=== PATIENT | male | born 1975 | race Caucasian/White ===

== ENCOUNTER 2016-09-13 22:56 | Emergency (ER) | payer BC, OTHER ==
[~2016-09-13] VITALS: Ht 177.8 cm; Wt 101.0 kg
[2016-09-13 23:00] VITALS: Ht 177.8 cm; Wt 101.0 kg
[2016-09-14] MEDS ORDERED: ASPIRIN 325 MG TAB PO STA (00:20)
[2016-09-14 00:34] LABS: URINE BLOOD (Dip) POC Negative (NEGATIVE)
--- NOTE | 2016-09-14 00:56 | RADRPT ---
PROCEDURE: XR Chest. CLINICAL INDICATION: Chest pain. TECHNIQUE: Portable AP upright view of the chest was obtained. COMPARISON: None. FINDINGS: The cardiomediastinal silhouette is within normal limits. The lungs are clear. There is no evidenc e for pleural effusion, pneumothorax or pulmonary vascular congestion. The osseous structures are i ntact with no evidence for acute abnormality. RPTAT:HJJR IMPRESSION: No evidence for acute intrathoracic pathology. Physician Marisol Date Time Electronically viewed and signed by Physician Marisol on 09/14/2016 00:56 JR/
[2016-09-14] MEDS ORDERED: IBUP100T46 PO (01:15)
[2016-09-14] MEDS ORDERED: TAMS0.4C2 PO (01:15)
[2016-09-14 01:18] LABS: ADD SCAN DIFF NO
[2016-09-14 01:23] LABS: BASOPHIL # 0.1 10^3/ul (0.0-0.1); BASOPHILS % 0.4 % (0.0-2.0); EOSINOPHILS # 0.3 10^3/ul (0.0-0.5); EOSINOPHILS % 2.6 % (0.0-7.0); HEMATOCRIT 47.8 % (42.0-52.0); HEMOGLOBIN 16.6 g/dl (14.0-18.0); LYMPHOCYTES # 3.7 10^3/ul (0.8-2.9); LYMPHOCYTES % 31.8 % (15.0-51.0); MEAN CORPUSCULAR HEMOGLOBIN 30.3 pg (29.0-33.0); MEAN CORPUSCULAR HGB CONC 34.7 g/dl (32.0-37.0); MEAN CORPUSCULAR VOLUME 87.2 fl (82.0-101.0); MEAN PLATELET VOLUME 10.8 fl (7.4-10.4); MONOCYTE # 0.8 10^3/ul (0.3-0.9); MONOCYTES % 6.8 % (0.0-11.0); NEUTROPHIL # 6.8 10^3/ul (1.6-7.5); NEUTROPHILS % 58.1 % (39.0-77.0); PLATELET COUNT 183 10^3/UL (140-415); RED BLOOD COUNT 5.48 10^6/ul (4.70-6.10); RED CELL DISTRIBUTION WIDTH 12.9 % (11.5-14.5); WHITE BLOOD COUNT 11.7 10^3/ul (4.8-10.8)
[2016-09-14 01:25] LABS: ADD UMIC YES; UR ASCORBIC ACID NEGATIVE (NEGATIVE); UR BACTERIA FEW /HPF (NONE SEEN); UR BILIRUBIN (Dip) NEGATIVE (NEGATIVE); UR BLOOD (Dip) NEGATIVE (NEGATIVE); UR CLARITY CLEAR (CLEAR); UR COLOR YELLOW (YELLOW); UR GLUCOSE (Dip) NEGATIVE (NEGATIVE); UR KETONES (Dip) NEGATIVE (NEGATIVE); UR LEUKOCYTE ESTERASE (Dip) NEGATIVE Leu/ul (NEGATIVE); UR MUCUS FEW /HPF (NONE SEEN); UR NITRITE (Dip) NEGATIVE (NEGATIVE); UR RBC 1 /HPF (0-5); UR SPECIFIC GRAVITY (Dip) 1.025 (1.003-1.030); UR TOTAL PROTEIN (Dip) 1+ mg/dl (NEGATIVE); UR UROBILINOGEN (Dip) 1+ mg/dL (NEGATIVE)
[2016-09-14 01:35] LABS: INR 0.91; PROTIME 12.3 Sec (12.2-14.2)
[2016-09-14 01:52] LABS: ANION GAP 15 (8-16); BLOOD UREA NITROGEN 12 mg/dl (7-20); CALCIUM 9.9 mg/dl (8.4-10.2); CARBON DIOXIDE 25 mmol/L (21-31); CHLORIDE 107 mmol/L (97-110); CREATININE 0.84 mg/dl (0.61-1.24); GLUCOSE 99 mg/dl (70-220); POTASSIUM 3.9 mmol/L (3.5-5.1); SODIUM 143 mmol/L (135-144)
[2016-09-14 02:14] LABS: TROPONIN-I < 0.012 ng/ml (0.00-0.12)
[2016-09-14] MEDS ORDERED: NAPR-688 PO (03:35)
[2016-09-14] MEDS ORDERED: RANI150T9 PO (03:35)
--- NOTE | 2016-09-14 03:43 | ERD ---
ER Documentation Chief Complaint Date/Time DATE: 09/14/16 TIME: 03:38 Chief Complaint chest pain since 1 hour ago, unable to urinate since this morning HPI 41-year-old male was coming the emergency room for his enlarged prostate and feel like he could not urinate since this morning. He had just seen his primary care doctor couple days ago and was diagnosed with an enlarged prostate and given Flomax. He has not yet seen a urologist. After he decided to come the hospital he experienced substernal central chest pain described as a sharpness. He has no associated shortness of breath nausea or vomiting ROS All systems reviewed and are negative except as per history of present illness. Medications Home Meds Active Scripts Ranitidine Hcl* (Zantac*) 150 Mg Tablet, 150 MG PO BID Y for EPIGASTRIC PAIN, # 30 TAB Prov:LATESHA WADSWORTHSHUA DO 09/14/16 Naproxen* (Naproxen*) 500 Mg Tablet, 500 MG PO BID Y for PAIN, #20 TAB Prov:EVAN WADSWORTH DO 09/14/16 Reported Medications Ibuprofen* (Ibuprofen*) Unknown Strength Tab.chew, 100 MG PO Q6, TAB.CHEW 09/14/16 Tamsulosin Hcl* (Tamsulosin Hcl*) 0.4 Mg Cap.er.24h, 0.4 MG PO HS, CAP 09/14/16 Allergies Allergies: Coded Allergies: No Known Allergy (Unverified , 09/13/16) PMhx/Soc Medical and Surgical Hx: pt denies Medical Hx History of Surgery: Yes Anesthesia Reaction: No Hx Cardiac Disorders: Yes (htn) Hx Miscellaneous Medical Probl: Yes (enlarged prostate) Hx Alcohol Use: Yes Hx Substance Use: No Hx Tobacco Use: Yes Smoking Status: Current every day smoker Physical Exam Vitals Vital Signs Date Time Temp Pulse Resp B/P Pulse Ox O2 Delivery O2 Flow Rate FiO2 09/14/16 03:05 76 120/73 98 Room Air 09/14/16 01:32 Nasal Cannula 3 09/14/16 01:15 85 18 137/85 96 Room Air 09/13/16 23:00 98.6 91 20 168/95 98 Physical Exam Const: [] Head: Atraumatic Eyes: Normal Conjunctiva ENT: Normal External Ears, Nose and Mouth. Neck: Full range of motion..~ No meningismus. Resp: Clear to auscultation bilaterally Cardio: Regular rate and rhythm, no murmurs Abd: Soft, non tender, non distended. Normal bowel sounds Skin: No petechiae or rashes Back: No midline or flank tenderness Ext: No cyanosis, or edema Neur: Awake and alert Psych: Normal Mood and Affect Result Diagram: 09/14/16 0055 09/14/16 0055 Results 24 hrs Laboratory Tests Test 09/14/16 00:37 09/14/16 00:55 09/14/16 02:33 Bedside Urine pH (LAB) 6.0 Bedside Urine Protein (LAB) 1+ Bedside Urine Glucose (UA) Negative Bedside Urine Ketones (LAB) Negative Bedside Urine Blood Negative Bedside Urine Nitrite (LAB) Negative Bedside Urine Leukocyte Esterase (L Negative White Blood Count 11.710^3/ul Red Blood Count 5.4810^6/ul Hemoglobin 16.6g/dl Hematocrit 47.8% Mean Corpuscular Volume 87.2fl Mean Corpuscular Hemoglobin 30.3pg Mean Corpuscular Hemoglobin Concent 34.7g/dl Red Cell Distribution Width 12.9% Platelet Count 08689^3/UL Mean Platelet Volume 10.8fl Neutrophils % 58.1% Lymphocytes % 31.8% Monocytes % 6.8% Eosinophils % 2.6% Basophils % 0.4% Nucleated Red Blood Cells % 0.0/100WBC Neutrophils # 6.810^3/ul Lymphocytes # 3.710^3/ul Monocytes # 0.810^3/ul Eosinophils # 0.310^3/ul Basophils # 0.110^3/ul Nucleated Red Blood Cells # 0.010^3/ul Prothrombin Time 12.3Sec Prothrombin Time Ratio 1.0 INR International Normalized Ratio 0.91 Activated Partial Thromboplast Time 32.0Sec Urine Color YELLOW Urine Clarity CLEAR Urine pH 6.0 Urine Specific [place] 1.025 Urine Ketones NEGATIVEmg/dL Urine Nitrite NEGATIVEmg/dL Urine Bilirubin NEGATIVEmg/dL Urine Urobilinogen 1+mg/dL Urine Leukocyte Esterase NEGATIVELeu/ul Urine Microscopic RBC 1/HPF Urine Microscopic WBC 1/HPF Urine Bacteria FEW/HPF Urine Mucus FEW/HPF Urine Hemoglobin NEGATIVEmg/dL Urine Glucose NEGATIVEmg/dL Urine Total Protein 1+mg/dl Sodium Level 143mmol/L Potassium Level 3.9mmol/L Chloride Level 107mmol/L Carbon Dioxide Level 25mmol/L Anion Gap 15 Blood Urea Nitrogen 12mg/dl Creatinine 0.84mg/dl Glucose Level 99mg/dl Calcium Level 9.9mg/dl Troponin I < 0.012ng/ml < 0.012ng/ml Current Medications Medications (Trade) Dose Ordered Sig/Emily Route PRN Reason Start Time Stop Time Status Last Admin Dose Admin Aspirin (Aspirin) 325 mg ONCE STAT PO 09/14/16 00:20 09/14/16 00:22 DC 09/14/16 01:15 Procedures/MDM 41-year-old male smoker who complained of chest pain. Also has enlarged prostate is just diagnosed by his doctor taking Flomax. Able to urinate normally emergency room. No signs of infection. Postvoid residual was only 60. No significant urinary retention. One EKG did have signs of ischemia however patient had 2 negative troponins 4 hours apart. I have low suspicion for acute coronary syndrome at this point. I am going to discharge the patient with instructions his primary care doctor in the next 2 days return echocardiogram. Also discharging patient with Zantac and naproxen. Very mild leukocytosis with no signs of infectious source. Patient feels well and chest pain had resolved with only aspirin. EKG interpretation #1: Normal sinus rhythm rate of 97, normal axis, no ST or T- wave changes concerning for acute ischemia, normal intervals. Normal EKG EKG interpretation #2 normal sinus rhythm rate of 84, normal axis, T-wave inversions in leads III and aVF concerning for possible ischemia. Normal intervals surveillance monitor interpretation: Normal sinus rhythm without arrhythmia Departure Diagnosis: Primary Impression: Enlarged prostate Additional Impression: Chest pain Condition: Stable Patient Instructions: Bph (Enlarged Prostate), Chest Pain, Uncertain Cause Additional Instructions: Call your primary care doctor TOMORROW for an appointment during the next 2-3 days. Otain a referral for a UROLOGIST. See the doctor sooner or return here if your condition worsens before your appointment time. EVAN WADSWORTH DO Sep 14, 2016 03:43
[2016-09-14 04:09] VITALS: BP 137/74; PULSE 93; RESP 18
== END 2016-09-14 04:10 | disposition home or self-care (01) ==
LOC: E/R 22:56
DX: N40.0 Benign prostatic hyperplasia without lower urinary tract symptoms (principal); F17.210 Nicotine dependence, cigarettes, uncomplicated; I10 Essential (primary) hypertension
CPT/HCPCS: 36415; 71010; 80048; 81001; 84484; 85025; 85610; 85730; 93005; P9612; Z7502; Z7610; 81003

== ENCOUNTER 2017-12-05 09:28 | Emergency (ER) | END 2017-12-05 10:37 | disposition home or self-care (01) ==

== ENCOUNTER 2018-06-22 13:02 | Emergency (ER) | payer MEDICAID, OTHER ==
[~2018-06-22] VITALS: Ht 175.3 cm; Wt 107.6 kg
[~2018-06-22 13:02] MED LIST: CEPH-443 PO; IBUP100T3 PO; NAPR-688 PO; NAPR-985 PO; RANI150T35 PO; SULF1TAB31 PO; TAMS0.4C2 PO
[2018-06-22 13:05] VITALS: Ht 175.3 cm; Wt 107.6 kg
--- NOTE | 2018-06-22 14:50 | ERD ---
ER Documentation Chief Complaint Chief Complaint chest pain radiating to neck and lt arm x 3 days HPI The patient is a 43-year-old male, presenting to the ER of left shoulder pain radiating down to the left arm for the last 2-3 days, denies similar symptoms previously. He complains of substernal and left-sided chest pain today that began around 5 AM, denies similar symptoms previously. Chest pain with vomiting/radiation/exertion/diaphoresis, dyspnea, abdominal pain, vomiting, dysuria, diarrhea. There is no aggravating/relieving factor. He smokes a pack to 2 packs a day, drinks socially, denies illicit drug Past medical history: BPH, hypertension Past surgical history: Appendectomy ROS All systems reviewed and are negative except as per history of present illness. Medications Home Meds Discontinued Reported Medications Ibuprofen* (Ibuprofen*) Unknown Strength Tab.chew, 100 MG PO Q6, TAB.CHEW 09/14/16 Tamsulosin Hcl* (Tamsulosin Hcl*) 0.4 Mg Cap.er.24h, 0.4 MG PO HS, CAP 09/14/16 Discontinued Scripts Naproxen* (Naprosyn*) 500 Mg Tablet, 500 MG PO BID PRN for PAIN AND/OR INFLAMMATION, #30 TAB Prov:HARRY DOE PA-C 12/05/17 Sulfamethoxazole/Trimethoprim* (Bactrim Ds* Tablet) 1 Each Tablet, 1 TAB PO BID, #14 TAB Prov:HARRY DOE PA-C 12/05/17 Cephalexin* (Keflex*) 500 Mg Capsule, 500 MG PO QID for 7 Days, CAP Prov:HARRY DOE PA-C 12/05/17 Ranitidine Hcl* (Zantac*) 150 Mg Tablet, 150 MG PO BID PRN for EPIGASTRIC PAIN, #30 TAB Prov:GREENREGINOEVAN DO 09/14/16 Naproxen* (Naproxen*) 500 Mg Tablet, 500 MG PO BID PRN for PAIN, #20 TAB Prov:GREENEVAN DO 09/14/16 Allergies Allergies: Coded Allergies: No Known Allergy (Unverified , 06/22/18) PMhx/Soc History of Surgery: Yes (APPY) Anesthesia Reaction: No Hx Neurological Disorder: No Hx Respiratory Disorders: No Hx Cardiac Disorders: Yes (htn) Hx Psychiatric Problems: No Hx Miscellaneous Medical Probl: Yes (enlarged prostate) Hx Alcohol Use: Yes (OOC) Hx Substance Use: No Hx Tobacco Use: Yes Physical Exam Vitals Vital Signs Date Temp Pulse Resp B/P (MAP) Pulse Ox O2 O2 Flow FiO2 Time Delivery Rate 06/22/18 84 18 130/76 99 19:00 (94) 06/22/18 94 17 150/87 99 Room Air 17:16 (108) 06/22/18 84 17 146/94 100 Room Air 16:00 (111) 06/22/18 98.1 118 18 152/91 97 13:05 (111) Physical Exam Const: No acute distress Head: Atraumatic Eyes: Normal Conjunctiva ENT: Normal External Ears, Nose and Mouth. Neck: Full range of motion. No meningismus. Resp: Clear to auscultation bilaterally Cardio: Regular rate and rhythm, no murmurs Abd: Soft, non tender, non distended. Normal bowel sounds Skin: No petechiae or rashes Back: No midline or flank tenderness Ext: No cyanosis, or edema Neur: Awake and alert Psych: Normal Mood and Affect Result Diagram: 06/22/18 1510 06/22/18 1510 Results 24 hrs Laboratory Tests Test 06/22/18 15:10 White Blood Count 12.0 10^3/ul Red Blood Count 5.74 10^6/ul Hemoglobin 17.0 g/dl Hematocrit 50.2 % Mean Corpuscular Volume 87.5 fl Mean Corpuscular Hemoglobin 29.6 pg Mean Corpuscular Hemoglobin Concent 33.9 g/dl Red Cell Distribution Width 13.2 % Platelet Count 184 10^3/UL Mean Platelet Volume 10.4 fl Immature Granulocytes % 0.400 % Neutrophils % 61.1 % Lymphocytes % 29.5 % Monocytes % 6.2 % Eosinophils % 2.3 % Basophils % 0.5 % Nucleated Red Blood Cells % 0.0 /100WBC Immature Granulocytes # 0.050 10^3/ul Neutrophils # 7.3 10^3/ul Lymphocytes # 3.5 10^3/ul Monocytes # 0.7 10^3/ul Eosinophils # 0.3 10^3/ul Basophils # 0.1 10^3/ul Nucleated Red Blood Cells # 0.0 10^3/ul D-Dimer 1024.91 ng/ml D-Dimer Comment Sodium Level 143 mmol/L Potassium Level 4.0 mmol/L Chloride Level 105 mmol/L Carbon Dioxide Level 26 mmol/L Anion Gap 12 Blood Urea Nitrogen 14 mg/dl Creatinine 0.79 mg/dl Est Glomerular Filtrat Rate mL/min > 60 mL/min Glucose Level 127 mg/dl Calcium Level 9.8 mg/dl Troponin I < 0.012 ng/ml Current Medications Medications Dose Sig/Emily Start Time Status Last (Trade) Ordered Route PRN Stop Time Admin Dose Reason Admin Aspirin 324 mg ONCE ONCE 06/22/18 DC 06/22/18 (Aspirin) PO 15:00 06/22/18 17:29 15:01 1 inch ONCE ONCE 06/22/18 DC 06/22/18 Nitroglycerin TD 15:00 06/22/18 17:29 15:01 (Nitroglyceri n 2% Oint) IV Flush 10 ml STK-MED 06/22/18 DC (NS 10 ml) ONCE .ROUTE 18:41 06/22/18 18:42 Sodium 100 ml @ ud STK-MED 06/22/18 DC Chloride ONCE .ROUTE 18:41 06/22/18 18:42 Iohexol 100 ml @ ud STK-MED 06/22/18 DC ONCE .ROUTE 18:41 06/22/18 18:42 IV Flush 3 ml PER 06/22/18 (NS 3 ml) PROTOCOL IV 20:00 Oxycodone/ 1 tab Q6H PRN 06/22/18 Acetaminophen PO .MOD PAIN 20:00 (Percocet 4-6 (5/ 325)) Procedures/[place] [id number] Radiology Main Line: [phone] DIAGNOSTIC IMAGING REPORT Patient: LOIDA SPENCER : 1975 Age: 43 Sex: M MR #: [id number] DOS: 06/22/18 1657 Ordering MD: ARMAND AGUILAR MD Location: E/R Room/Bed: PROCEDURE: CTA Chest. CLINICAL INDICATION: Chest pain and shortness of breath TECHNIQUE: Continues 1.25 mm axial images were obtained from lung apices to the domes of diaphragms following intravenous injection of 100 cc of Isovue 370. Images reconstructed in coronal, sagittal, and 3-D format using maximum intensity projection technique.. The calculated dose length product (DLP) = 704.51 mGy-cm. The CTDlvol = 18.01 mGy. One or more of the following dose reduction techniques were used: Automated exposure control, adjustment of the mA and or KV according to patient size, or use of iterative reconstruction technique. DICOM images are available. COMPARISON: No prior studies are available for comparison. FINDINGS: Images through the pulmonary arteries demonstrates no evidence of large or central pulmonary emboli. The ascending and descending thoracic aorta are normal in caliber without aneurysmal dilatation or dissection. Heart chambers are normal in size. There is no significant coronary calcification. No pericardial effusion is seen. There are no pathologically enlarged mediastinal or axillary lymph nodes. There is circumferential thickening of the esophagus suggesting esophagitis. Correlation with endoscopy is recommended. Scattered nodules are noted throughout the lungs. The dominant nodules are as fo llows: 9.2 mm right middle lobe (image number [id number]) 8.0 mm right middle lobe (image #4 - 67) 6.9 mm right middle lobe abutting the fissure (image #4 - 66) 6 mm subpleural right lower lobe (image #4 - 92) 6.2 mm subpleural left lower lung (image #4 - 87) These are nonspecific by imaging characteristics and may be infectious, inflammatory, or less likely neoplastic in etiology. Short interval follow-up is recommended to evaluate for resolution. No confluent consolidation, pleural fluid, pneumothorax is seen. The underlying architecture of the lungs is normal. No destructive bony lesions are seen. IMPRESSION: 1. No evidence of large or central pulmonary emboli. 2. No aortic aneurysm or dissection. 3. Several sub centimeter nodular densities are noted through the right lung. These may be infectious, inflammatory, or less likely neoplastic in etiology. Clinical correlation is advised, follow-up scan a short interval. 4. No confluent pneumonia, pleural fluid or pneumothorax. 5. Abnormal circumferential thickening of the esophagus suggesting esophagitis. Correlation with endoscopy is recommended RPTAT: HH .Junior Avina MD, Date Time Electronically viewed and signed by .Junior Avina MD, MD on 06/22/2018 19:11 .W/ CC: ARMAND AGUILAR MD [phone] [place] [id number] Radiology Main Line: [phone] DIAGNOSTIC IMAGING REPORT Patient: LOIDA SPENCER : 1975 Age: 43 Sex: M MR #: [id number] DOS: 06/22/18 1459 Ordering MD: ARMAND AGUILAR MD Location: E/R Room/Bed: PROCEDURE: XR Chest AP portable CLINICAL INDICATION: Chest pain TECHNIQUE: An AP portable radiograph of the chest was submitted. COMPARISON: 09/14/2016 FINDINGS: Support Hardware: None Cardiovascular: The cardiovascular silhouette appears unremarkable. Lung Amin: The patient is taken and even poorer inspiration mildly compressing lung parenchyma but no discrete infiltrate or nodule is evident. Pleural Spaces: No pneumothorax or pleural effusion is identified. Osseous Structures: The osseous structures appear intact. Soft Tissues: The soft tissues appear generous. IMPRESSION: 1. Suboptimal inspiration compresses lung parenchyma. 2. Otherwise, stable unremarkable chest without evidence of active cardiopulmonary disease. Physician Juan A Date Time Electronically viewed and signed by Physician Juan A on 06/22/2018 15:38 RH/ CC: ARMAND AGUILAR MD [phone] EKG: Read by emergency physician Rate/Rhythm: Sinus tachycardia 110 beats per min QRS, ST, T-waves: No ST elevation, no T wave inversion Impression: Normal EKG MEDICAL MAKING DECISION: The patient is a 43-year-old male with multiple cardiac risk factors, presenting with acute chest pain that is concerning for acute ACS. He was treated with 325 mg p.o. aspirin and 1 inch of nitroglycerin ointment to the chest wall for acute chest pain with good response The differential diagnoses considered include but are not limited to acute coronary syndrome, acute myocardial infarction, pericarditis, pulmonary embolism, aortic dissection, pneumonia, pleural effusion, pneumothorax, GERD, chest wall pain. Departure Diagnosis: Primary Impression: Chest pain Condition: Stable Comments I discussed the findings with the patient. I discussed the patient with the hospitalist Dr Sinclair at 5:20 pm who was made aware of the lab, the treatment, the patient condition. The patient is admitted to [facility] Disclaimer: Inadvertent spelling and grammatical errors are likely due to EHR/dictation software use and do not reflect on the overall quality of patient care. Also, please note that the electronic time recorded on this note does not necessarily reflect the actual time of the patient encounter. ARMAND AGUILAR MD Jun 22, 2018 14:50
[2018-06-22] MEDS ORDERED: ASPIRIN 81 MG TAB PO ONE (15:00)
[2018-06-22] MEDS ORDERED: NITROGLYCERIN 2% 1 GM OINT PKT TD ONE (15:00)
[2018-06-22] MEDS ORDERED: IOHEXOL 100 ML ONE (18:41)
[2018-06-22] MEDS ORDERED: SOD CHLORIDE 0.9% 100 ML ONE (18:41)
--- NOTE | 2018-06-22 19:50 | HP ---
Date/Time of Note Date/Time of Note DATE: 06/22/18 TIME: 19:48 Assessment/Plan VTE Prophylaxis Pharmacological prophylaxis: heparin Lines/Catheters IV Catheter Type (from Nrsg): Saline Lock Assessment/Plan Hospital Course 43 yo male with chest pain syndrome - CT-PE is pending - Cycle troponins to exclude ACS. EKG is not consistent with acute ischemia - Unlikely musculoskeletal as shoulder and chest wall exams are normal Hypertension: - Continue home meds Tobacco use d/o: - Advised to stop smoking javy rapp in AM if tests normal Result Diagram: 06/22/18 1510 06/22/18 1510 Results 24hrs Laboratory Tests Test 06/22/18 15:10 White Blood Count 12.0 H Red Blood Count 5.74 Hemoglobin 17.0 Hematocrit 50.2 Mean Corpuscular Volume 87.5 Mean Corpuscular Hemoglobin 29.6 Mean Corpuscular Hemoglobin Concent 33.9 Red Cell Distribution Width 13.2 Platelet Count 184 Mean Platelet Volume 10.4 Immature Granulocytes % 0.400 Neutrophils % 61.1 Lymphocytes % 29.5 Monocytes % 6.2 Eosinophils % 2.3 Basophils % 0.5 Nucleated Red Blood Cells % 0.0 Immature Granulocytes # 0.050 H Neutrophils # 7.3 Lymphocytes # 3.5 H Monocytes # 0.7 Eosinophils # 0.3 Basophils # 0.1 Nucleated Red Blood Cells # 0.0 D-Dimer 1024.91 H D-Dimer Comment Sodium Level 143 Potassium Level 4.0 Chloride Level 105 Carbon Dioxide Level 26 Anion Gap 12 Blood Urea Nitrogen 14 Creatinine 0.79 Est Glomerular Filtrat Rate mL/min > 60 Glucose Level 127 Calcium Level 9.8 Troponin I < 0.012 HPI/ROS Admit Date/Time Admit Date/Time Hx of Present Illness 43 yo male with tobacco use d/o, obesity, and hypertension presents with LUE and CP LUE pain started three days ago. Pain in his shoulder down his arm. Then developed chest pain this morning when he woke up. Pain persisted throughout the day. He works as a bulk driver. Sto[place] and pain in chest got worse so he came to hospital. Here he feels no symptoms ROS Constitutional: no complaints, improved Eyes: no complaints ENT: no complaints Respiratory: no complaints Cardiovascular: no complaints Gastrointestinal: no complaints Genitourinary: no complaints Musculoskeletal: no complaints Skin: no complaints Neurologic: no complaints Endocrine: no complaints Lymphatic: no complaints Psychological: no complaints, nl mood/affect Immunologic: no complaints PMH/Family/Social Past Medical History Medical History: hypertension Coded Allergies: No Known Allergy (Unverified , 06/22/18) Past Surgical History Past Surgical Hx: no surgical history Family History Significant Family History: no pertinent family hx Social History Alcohol Use: none Smoking Status: Current every day smoker Drug Use: none Exam/Review of Systems Vital Signs Vitals Vital Signs Date Temp Pulse Resp B/P (MAP) Pulse Ox O2 O2 Flow FiO2 Time Delivery Rate 06/22/18 94 17 150/87 99 Room Air 17:16 (108) 06/22/18 98.1 13:05 Exam Constitutional: alert, oriented, well developed Psych: no complaints, nl mood/affect Head: normocephalic, atraumatic Eyes: nl conjunctiva, EOMI, nl lids, nl sclera, PERRL ENMT: nl external ears & nose, nl lips & teeth, nl nasal mucosa & septum Neck: supple, non-tender Respiratory: clear to auscultation, normal air movement Cardiovascular: regular rate and rhythm, nl pulses Gastrointestinal: soft, nl liver, spleen, non-tender Musculoskeletal: nl extremities to inspection Extremities: normal pulses Neurological: SHOEMAKER APPRENTICE II-XII intact, nl mental status, nl speech, nl strength Skin: nl turgor; No rash or lesions Lymph: nl lymph nodes CYRUS LIN MD Jun 22, 2018 19:50
[2018-06-22] MEDS ORDERED: OXYCODONE/ACETAMINOPHEN (5/325) TAB PO PRN (20:00)
[2018-06-22] MEDS ORDERED: NACL 0.9% 3 ML SYG IV SCH (20:00)
[2018-06-22 21:00] VITALS: BP 118/93; PULSE 75; RESP 18
--- NOTE | 2018-06-23 17:14 | DS ---
Date/Time of Note Date/Time of Note DATE: 06/23/18 TIME: 17:13 Discharge Summary Admission/Discharge Info Admit Date/Time Discharge Date/Time Patient Condition: Stable Hx of Present Illness 43 yo male with tobacco use d/o, obesity, and hypertension presents with LUE and CP LUE pain started three days ago. Pain in his shoulder down his arm. Then developed chest pain this morning when he woke up. Pain persisted throughout the day. He works as a commercial truck driver. [place] and pain in chest got worse so he came to hospital. Here he feels no symptoms Hospital Course 43 yo male with chest pain syndrome Patient left AMA prior to my evaluation Home Meds Discontinued Reported Medications Ibuprofen* (Ibuprofen*) Unknown Strength Tab.chew, 100 MG PO Q6, TAB.CHEW 09/14/16 Tamsulosin Hcl* (Tamsulosin Hcl*) 0.4 Mg Cap.er.24h, 0.4 MG PO HS, CAP 09/14/16 Discontinued Scripts Naproxen* (Naprosyn*) 500 Mg Tablet, 500 MG PO BID PRN for PAIN AND/OR INFLAMMATION, #30 TAB Prov:HARRY DOE PA-C 12/05/17 Sulfamethoxazole/Trimethoprim* (Bactrim Ds* Tablet) 1 Each Tablet, 1 TAB PO BID, #14 TAB Prov:HARRY DOE PA-C 12/05/17 Cephalexin* (Keflex*) 500 Mg Capsule, 500 MG PO QID for 7 Days, CAP Prov:HARRY DOE PA-C 12/05/17 Ranitidine Hcl* (Zantac*) 150 Mg Tablet, 150 MG PO BID PRN for EPIGASTRIC PAIN, #30 TAB Prov:EVAN WADSWORTH DO 09/14/16 Naproxen* (Naproxen*) 500 Mg Tablet, 500 MG PO BID PRN for PAIN, #20 TAB Prov:EVAN WADSWORTH DO 09/14/16 Primary Care Provider Care Physician No Primary Pending Labs Laboratory Tests Test 06/22/18 20:56 Creatine Kinase 60 IU/L (23-200) Creatine Kinase Index 0.6 Creatinine Kinase MB (Mass) 0.38 ng/ml (0.0-2.4) Troponin I < 0.012 ng/ml (0.000-0.120) CYRUS LIN MD Jun 23, 2018 17:14
== END 2018-06-22 22:05 | disposition home or self-care (01) ==
LOC: E/R 13:02 → CANBEDREQ 06-23 17:42
DX: R07.9 Chest pain, unspecified (principal)
CPT/HCPCS: 36415; 71045; 71275; 80048; 82550; 82553; 84484; 85025; 85378; 93005; Q9967; Z7502; Z7610